=== PATIENT | female | born 1995 | race Hispanic/Latino ===

== ENCOUNTER 2024-12-04 13:15 | Emergency (ER) | payer SELFPAY ==
[~2024-12-04] VITALS: Ht 165.1 cm; Wt 85.3 kg
[2024-12-04] MEDS ORDERED: ibuPROFEN 800 MG TAB PO ONE (14:30)
--- NOTE | 2024-12-04 15:00 | ERN ---
ED Note History of Present Illness Stated Complaint: EYE PROBLEM Chief Complaint: Eye Problems Time Seen by MD: 13:21 Dictation: 79-year-old female presents to the ED for evaluation of left eye pain onset this morning. Patient states she slept with her contacts on and removed them this morning. Patient reports eye redness and swelling, but denies any other associated symptoms at this time. Allergies: Coded Allergies: No Known Allergies (Unverified Allergy, Unknown, 12/04/24) Home Meds Active Scripts Gentamicin Sulfate (Gentamicin Sulfate) 0.3 % Drops, 1 DROP OP QID for 5 Days, #5 ML 0 Refills Prov:LORETA MORFIN MD 12/04/24 Past Medical History Past Medical History: No Pertinent History Surgical History: None LMP: Dec 01, 2024 Review of System Dictation Constitutional: Negative for fever,chills, and weight loss Eyes: Positive for eye pain, redness and swelling ENT: Negative for injury,pain or swelling Cardiovascular: Negative for chest pain, palpitations, and edema Respiratory: Negative for shortness of breath, cough, and wheezing, Abdomen/GI: Negative for abdominal pain, nausea, vomiting, diarrhea, and constipation Back: Negative for injury and pain : Negative for injury, bleeding and discharge MS/Extremity: Negative for injury and deformity Skin: Negative for rash, and discoloration Neuro: Negative for headache, weakness, numbness, tingling, and seizure Psych: Negative for suicide ideation, homicidal ideation, and hallucinations Initial Vital Sign VS Vital Signs Date Time Temp Pulse Resp B/P (MAP) Pulse Ox O2 Delivery O2 Flow Rate FiO2 12/04/24 13:58 98.2 87 20 157/82 99 Room Air 12/04/24 15:31 0 21 Physical Exam Dictation General: awake, alert, NAD Head/Face: Normocephalic, atraumatic Eyes: Left eye conjunctival injection and small corneal abrasion ENT: oral cavity clear, TMs clear, no signs of infection Neck: Trachea midline, supple, no nuchal rigidity Cardiovascular: RRR, normal S1/S2, No MRGs, no JVD Respiratory: CTAB, no respiratory distress, No rales or wheezes Abdomen: Soft, non-tender, non-distended, normal bowel sounds, no guarding or rebound. Skin: Warm, dry, normal turgor, no rash MS/Extremity: Pulses equal, no cyanosis, neurovascular intact, FROM Neuro: COAx4, GCS 15, strength 5/5, CN 2-12 intact, normal cerebellar exam, normal gait, Psych: Normal behavior, mood, and affect normal ED Course ED Course Orders Procedure Category Date Status Time Ibuprofen 800 Mg Tab PHA 12/04/24 Complete (Motrin) 14:30 Tetracaine Hcl PHA 12/04/24 Complete (Pontocaine 0.5% 14:48 Tetracaine Hcl PHA 12/04/24 Complete (Pontocaine 0.5% 15:00 Hydrocodone/Apap PHA 12/04/24 Complete 10/325 Tab ([place] 10) 15:30 Current Medications Medications (Trade) Dose Ordered Sig/Behzad Route PRN Reason Start Time Stop Time Status Last Admin Dose Admin Acetaminophen/ Hydrocodone Bitart (NORco 10) 1 tab ONCE ONCE PO 12/04/24 15:30 12/04/24 15:31 DC 12/04/24 15:29 Ibuprofen (moTRIN) 800 mg ONCE ONCE PO 12/04/24 14:30 12/04/24 14:17 DC Tetracaine HCl (Pontocaine 0.5% Ophth Soln) 1 drop ONCE ONCE OP 12/04/24 15:00 12/04/24 15:01 DC 12/04/24 15:28 Tetracaine HCl (Pontocaine 0.5% Ophth Soln) 20 drop STK-MED ONCE .ROUTE 12/04/24 14:48 12/04/24 14:48 DC Vital Signs Date Time Temp Pulse Resp B/P (MAP) Pulse Ox O2 Delivery O2 Flow Rate FiO2 12/04/24 15:31 98.2 82 16 150/80 98 Room Air* 0 21 12/04/24 13:58 98.2 87 20 157/82 99 Room Air Medical Decision Making MDM MDM: Differential diagnosis: Eye pain, corneal abrasion Risk of complication and/or morbidity or mortality of patient management: None Medications-Per medication reconciliation Need for hospitalization: Patient does not meet criteria for hospitalization. Need for emergency major/minor surgery: No There are no social concerns with this patient. Prescription drug management Prescriptions will include symptomatic care I independently interpreted the test that were performed, results were reviewed by me and considered findings on radiology if ordered. DX & DISP Disposition: Discharge Departure Impression: Primary Impression: Left corneal abrasion Condition: Stable Scripts Gentamicin Sulfate (Gentamicin Sulfate) 0.3 % Drops 1 DROP OP QID for 5 Days, #5 ML 0 Refills Prov: LORETA MORFIN MD 12/04/24 Referrals: NONE (PCP) LORETA MORFIN MD Dec 04, 2024 15:00
[2024-12-04] MEDS ORDERED: GENT5DRO24 OP (15:21)
[2024-12-04] MEDS: TETRACAINE HCL 0.5% 4 ML OPHTH SOLN OP ONE (15:28)
[2024-12-04] MEDS: TETRACAINE HCL 0.5% 4 ML OPHTH SOLN ONE (15:28)
[2024-12-04] MEDS: HYDROcodone/acetaMINOPHEN 10/325 MG TAB PO ONE (15:29)
[2024-12-04 15:31] VITALS: BP 150/80; PULSE 82; RESP 16; TEMP 98.3; O2SAT 98
--- NOTE | 2024-12-04 15:39 | NUR ---
UNABLE TO DEPART PT AT THIS TIME DUE TO REGISTRATION PROCESS
== END 2024-12-04 16:18 | disposition home or self-care (01) ==
LOC: EDH 13:15
DX: S05.02XA Injury of conjunctiva and corneal abrasion without foreign body, left eye, initial encounter (principal); X58.XXXA Exposure to other specified factors, initial encounter; Y93.89 Activity, other specified; Y92.89 Other specified places as the place of occurrence of the external cause; Y99.8 Other external cause status
CPT/HCPCS: 99283